=== PATIENT | male | born 1980 | race Caucasian/White ===

== ENCOUNTER 2020-06-29 19:09 | Emergency (ER) | payer OTHER ==
[~2020-06-29] VITALS: Ht 170.2 cm; Wt 65.8 kg
[2020-06-29 19:39] VITALS: BP 146/86
--- NOTE | 2020-06-29 19:43 | NUR ---
ED Nurse Note: Patient walked into ED c/o fatigue and low body temp for 2 weeks, patient regularly gets tested for covid, states that he got tested today however is waiting for result. pt reports checking his temp regularly and that it is in around the 97 range, states that today at triage 98.9 was the highest temp recorded this month so far.
[2020-06-29 20:11] LABS: BASOPHILS % (AUTO) 1.2 % (0.0-2.0); EOSINOPHILS % (AUTO) 0.4 % (0.0-3.0); HEMATOCRIT 51.6 % (42.0-52.0); HEMOGLOBIN 16.9 G/DL (14.2-18.0); LYMPHOCYTES % (AUTO) 30.7 % (20.0-45.0); MEAN CORPUSCULAR VOLUME 86 FL (80-99); MONOCYTES % (AUTO) 6.2 % (1.0-10.0); NEUTROPHILS % (AUTO) 61.5 % (45.0-75.0); PLATELET COUNT 182 K/UL (150-450); RED BLOOD COUNT 5.96 M/UL (4.70-6.10); RED CELL DISTRIBUTION WIDTH 12.4 % (11.6-14.8); WHITE BLOOD COUNT 11.1 K/UL (4.8-10.8)
[2020-06-29 20:12] LABS: ANION GAP 9 mmol/L (5-15); BLOOD UREA NITROGEN 21 mg/dL (7-18); CALCIUM 10.1 MG/DL (8.5-10.1); CARBON DIOXIDE 26 MMOL/L (21-32); CHLORIDE 104 MMOL/L (98-107); CREATININE 1.1 MG/DL (0.55-1.30); POTASSIUM 4.1 MMOL/L (3.5-5.1); SODIUM 139 MMOL/L (136-145)
[2020-06-29 20:24] LABS: ALANINE AMINOTRANSFERASE 17 U/L (12-78); ALBUMIN 4.5 G/DL (3.4-5.0); ALBUMIN/GLOBULIN RATIO 1.4 (1.0-2.7); ALKALINE PHOSPHATASE 55 U/L (46-116); ASPARTATE AMINO TRANSFERASE 15 U/L (15-37); BILIRUBIN,TOTAL 0.3 MG/DL (0.2-1.0)
[2020-06-29 21:10] VITALS: BP 146/86
--- NOTE | 2020-06-29 21:10 | NUR ---
ER DISCHARGE NOTE: Patient is cleared to be discharged per ERMD, pt is aox4, on room air, with stable vital signs. pt was given dc and prescription instructions, pt was able to verbalize understanding, pt id band removed without complications. pt is able to ambulate with steady gait. pt took all belongings.
--- NOTE | 2020-07-01 07:45 | Emergency Room Report ---
History of Present Illness General Chief Complaint: General Complaint Source: Patient Present Illness HPI 39-year-old male presents for evaluation. States that for the last 2 weeks he has been having intermittent episodes of low temperature and feeling fatigued. Temp in triage 98.9. Denies fevers or chills. States has been tested for Covid multiple times. Denies chest pain or shortness of breath. No other aggravating relieving factors. 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 COVID-19 Screening: PUI COVID-19 COVID-19 Testing Source: clinic Patient History Past Medical History: none Past Surgical History: none Pertinent Family History: none Social History: Denies: smoking, alcohol use, drug use Immunizations: UTD Reviewed Nursing Documentation: PMH: Agreed; PSxH: Agreed Nursing Documentation-PMH Past Medical History: No Stated History Review of Systems All Other Systems: negative except mentioned in HPI Physical Exam Vital Signs Date Time Temp Pulse Resp B/P (MAP) Pulse Ox O2 Delivery O2 Flow Rate FiO2 06/29/20 19:24 99.0 95 18 159/103 (121) 98 Room Air Sp02 EP Interpretation: reviewed, normal General Appearance: no apparent distress, alert, GCS 15, non-toxic Head: normocephalic, atraumatic Eyes: bilateral eye normal inspection, bilateral eye PERRL ENT: hearing grossly normal, normal pharynx, no angioedema, normal voice Neck: full range of motion, supple/symm/no masses Respiratory: chest non-tender, lungs clear, normal breath sounds, speaking full sentences Cardiovascular #1: regular rate, rhythm, no edema Cardiovascular #2: 2+ carotid (R), 2+ carotid (L), 2+ radial (R), 2+ radial (L), 2+ dorsalis pedis (R), 2+ dorsalis pedis (L) Gastrointestinal: normal bowel sounds, non tender, soft, non-distended, no guarding, no rebound Rectal: deferred Genitourinary: normal inspection, no CVA tenderness Musculoskeletal: back normal, normal range of motion, gait/station normal, non- tender Neurologic: alert, motor strength/tone normal, oriented x3, sensory intact, responsive, speech normal Psychiatric: judgement/insight normal, memory normal, mood/affect normal, no suicidal/homicidal ideation Reflexes: 3+ bicep (R), 3+ bicep (L), 3+ tricep (R), 3+ tricep (L), 3+ knee (R), 3+ knee (L) Lymphatic: no adenopathy Medical Decision Making Diagnostic Impression: Primary Impression: Encounter for generalized patient complaints ER Course Hospital Course 39-year-old male presents with episodic low temperatures, fatigued differential diagnosis: hypothyroid, dehydration, anemia Clinical course Patient placed on stretcher. Initial history physical exam reveals a male in no acute distress. Physical exam unremarkable. Labs - no leukocytosis, electrolytes ok, LFTs normal, TSH normal I discussed findings with patient. Vitals stable. Labs unremarkable. Physical exam normal. No emergent condition to explain patient's symptoms. Safe for discharge with close outpatient follow-up. I will provide referrals I feel this is a highly complex case requiring extensive working including EKG/Rhythm strip, Xray/CT/US, Blood/urine lab work, repeat exams while in ED, and administration of strong opiates/narcotics for pain control, admission to hospital or close patient follow up. Diagnosis -encounter for generalized patient complaint Stable and discharged to home. Followup with PMD. Return to ED if symptoms recur or worsen Last Vital Signs Date Time Temp Pulse Resp B/P (MAP) Pulse Ox O2 Delivery O2 Flow Rate FiO2 06/29/20 21:10 99.0 18 146/86 98 Room Air 06/29/20 19:39 95 Status: improved Disposition: HOME, SELF-CARE Condition: Stable Referrals: [facility],REFERRING (PCP) Yana Ruiz Comp. [facility] Patient Instructions: Weakness, [id number] Donte Velazquez MD Jul 01, 2020 07:45
== END 2020-06-29 21:10 | disposition home or self-care (01) ==
LOC: EMR 19:59
DX: R68.89 Other general symptoms and signs (principal); R53.83 Other fatigue
CPT/HCPCS: 36415; 80053; 84443; 85025; 99284